=== PATIENT | male | born 1970 | race Two or more races ===

== ENCOUNTER 2024-02-23 03:13 | Emergency (ER) | payer MEDICAID, OTHER ==
[~2024-02-23] VITALS: Ht 193 cm; Wt 95.7 kg
[2024-02-23 03:57] VITALS: TEMP 98.2
[2024-02-23 04:46] LABS: APPEARANCE,URINE CLOUDY (CLEAR); BILIRUBIN,URINE 2+ (NEGATIVE); BLOOD, URINE 3+ Ery/uL (NEGATIVE); COLOR,URINE AMBER (YELLOW); KETONES,URINE TRACE mg/dL (NEGATIVE); LEUKOCYTE ESTERASE ,URINE 2+ (NEGATIVE); NITRITE, URINE POSITIVE (NEGATIVE); PROTEIN,URINE 2+ mg/dl (NEGATIVE); UGLUCOSE NEGATIVE (NEGATIVE)
[2024-02-23] MEDS ORDERED: CIPROFLOXACIN HCL 500 MG TABLET ONE (04:56)
[2024-02-23] MEDS ORDERED: CIPR-262 PO (04:56)
[2024-02-23] MEDS: CIPROFLOXACIN HCL 500 MG TABLET PO ONE (04:59)
[2024-02-23 05:02] VITALS: BP 131/81; O2SAT 99
[2024-02-23 06:18] LABS: ADD URINE CULTURE YES; BACTERIA,URINE 2+ /HPF (None Seen); MUCUS,URINE Many /LPF (None Seen); RBC,URINE TOO NUMEROUS TO COUN /HPF (0-2); SQUAMOUS EPITHELIAL CELL,UR None Seen /HPF (None Seen); WBC,URINE 21-50 /HPF (0-3)
== END 2024-02-23 05:07 | disposition home or self-care (01) ==
LOC: EDSEX 03:13 → ER 03:20
DX: N39.0 Urinary tract infection, site not specified (principal); Z79.899 Other long term (current) drug therapy
CPT/HCPCS: 81001; 87086-TC